=== PATIENT | female | born 1980 | race Caucasian/White ===

== ENCOUNTER 2022-10-11 06:00 | Outpatient (RCR) | payer MEDICAID, SELFPAY | END 2022-11-09 23:59 | disposition home or self-care (01) | LOC: MOT 06:00 | PROVIDERS: Visit Provider Orthopaedic Surgery Hand Surgery | DX: G56.22 Lesion of ulnar nerve, left upper limb (principal) | CPT/HCPCS: 97022; 97110; 97140; 97165 ==

== ENCOUNTER 2022-11-10 06:00 | Outpatient (RCR) | payer MEDICAID, SELFPAY | END 2022-12-10 23:59 | disposition home or self-care (01) | LOC: MOT 06:00 | PROVIDERS: Visit Provider Orthopaedic Surgery Hand Surgery | DX: G56.22 Lesion of ulnar nerve, left upper limb (principal) | CPT/HCPCS: 97022; 97110; 97140 ==

== ENCOUNTER 2022-12-11 06:00 | Outpatient (RCR) | payer MEDICAID, SELFPAY | END 2022-12-24 23:59 | disposition home or self-care (01) | LOC: MOT 06:00 | PROVIDERS: Visit Provider Orthopaedic Surgery Hand Surgery | DX: G56.22 Lesion of ulnar nerve, left upper limb (principal) | CPT/HCPCS: 97110; 97140 ==

== ENCOUNTER 2023-02-09 06:00 | Outpatient (RCR) | payer SELFPAY | END 2023-02-09 23:55 | disposition home or self-care (01) | LOC: MOT 06:00 | PROVIDERS: Visit Provider Orthopaedic Surgery Hand Surgery | DX: Z47.89 Encounter for other orthopedic aftercare (principal) | CPT/HCPCS: 97110; 97140; 97166 ==

== ENCOUNTER 2023-02-10 06:00 | Outpatient (RCR) | payer SELFPAY | END 2023-03-12 23:59 | disposition home or self-care (01) | LOC: MOT 06:00 | PROVIDERS: Visit Provider Orthopaedic Surgery Hand Surgery | DX: Z47.89 Encounter for other orthopedic aftercare (principal) | CPT/HCPCS: 97022; 97110; 97140 ==

== ENCOUNTER 2023-03-13 06:00 | Outpatient (RCR) | payer MEDICAID, SELFPAY | END 2023-03-25 23:59 | disposition home or self-care (01) | LOC: MOT 06:00 | PROVIDERS: Referring Provider Orthopaedic Surgery Hand Surgery; Visit Provider Orthopaedic Surgery Hand Surgery | DX: M79.642 Pain in left hand (principal) | CPT/HCPCS: 97022; 97110; 97140 ==

== ENCOUNTER 2023-05-29 08:08 | Outpatient (CLI) | payer MEDICAID, SELFPAY ==
--- NOTE | 2023-05-29 | XR_ITS ---
WS: [id number] Exam: XR knee LT 4V [id number] Date/Time of Exam: 05/29/2023 9:01 AM Reason For Exam: LT KNEE INSTABILITY Comparison 11/24/2017. No fracture. The joint compartments are preserved. No joint effusion. Normal soft tissues. IMPRESSION: 1. Negative LEFT knee.
--- NOTE | 2023-05-29 08:16 | US_ITS ---
WS: [id number] ULTRASOUND SOFT TISSUES LEFT knee HISTORY: L KNEE INSTABILITY COMPARISON: None available. TECHNIQUE: 2-D and color Doppler imaging is submitted. Ultrasound was performed of the soft tissues around the LEFT knee. There is a very small amount of fl uid along the lateral LEFT knee in the expected location of the lateral collateral ligament. No supra patellar effusion. IMPRESSION: 1. Small amount of fluid along the lateral knee. Otherwise soft tissue ultrasound is negative.
== END 2023-05-29 08:09 | disposition home or self-care (01) ==
PROVIDERS: Visit Provider Family Medicine
DX: M23.52 Chronic instability of knee, left knee (principal)
CPT/HCPCS: 73564; 76882